=== PATIENT | female | born 1945 | race Caucasian/White ===

== ENCOUNTER 2017-06-01 20:20 | Emergency (ER) | payer OTHER ==
[2017-06-01 20:46] VITALS: BP 117/73; PULSE 88; TEMP 98.1; BMI 26.6
--- NOTE | 2017-06-01 21:39 | PDOC ---
History of Present Illness - General Chief Complaint: Vomiting/Diarrhea Stated Complaint: VOMITING & DIARRHEA Time Seen by Provider: 06/01/17 20:27 - History of Present Illness Initial Comments: This 72 y.o woman(Sami speaking only), hx of HTN,DM[Type2], HLD, Dementia is brought into the ER by her son and daughter with a one day history of loose, watery stools and one episode of vomiting just prior to presentation. No blood in emesis in stool. No hx of fever/chills. The patient has not complained of abdominal pain/chest pain/ shortness of breath to her family. No known immediate sick contacts although young grandchildren who reportedly have "a virus" visited a few days ago.No recent travel. Past History - Past Medical History Allergies/Adverse Reactions: Allergies Allergy/AdvReac Type Severity Reaction Status Date / Time No Known Allergies Allergy Verified 06/01/17 20:24 Home Medications: Ambulatory Orders Amlodipine Besylate [Norvasc -] 5 mg PO DAILY 06/01/17 Aspirin Coated [Ecotrin -] 81 mg PO DAILY 06/01/17 Duloxetine HCl [Cymbalta] 30 mg PO DAILY 06/01/17 Linagliptin [Tradjenta] 5 mg PO DAILY 06/01/17 Lisinopril 20 mg PO DAILY 06/01/17 Metformin HCl [Glucophage] 500 mg PO DAILY 06/01/17 Metoprolol Succinate [Toprol Xl] 100 mg PO DAILY 06/01/17 Potassium Chloride [K-Tab ER] 20 meq PO DAILY 06/01/17 Simvastatin 20 mg PO DAILY 06/01/17 Ondansetron [Zofran Odt -] 4 mg SL BID PRN #8 od.tablet 06/02/17 COPD: No Dementia: Yes Diabetes: Yes (TYPE II) HTN: Yes Hypercholesterolemia: Yes Psychiatric Problems: Yes (DEPRESSION) - Suicide/Smoking/Psychosocial Hx Smoking History: Never smoked Hx Alcohol Use: No Drug/Substance Use Hx: No Substance Use Type: None *Physical Exam - Vital Signs Last Vital Signs Temp Pulse Resp BP Pulse Ox 98.1 F 88 18 117/73 95 06/01/17 20:22 06/01/17 20:22 06/01/17 20:22 06/01/17 20:22 06/01/17 20:22 ED Treatment Course - LABORATORY CBC & Chemistry Diagram: 06/01/17 21:49 06/01/17 21:49 Progress Note - Progress Note Progress Note: The patient received 2 IV boluses of 500 ml of NS. Laboratory evaluation is essentially normal except for mild pre-renal azotemia( Bun23/Cre1.3) After IV fluids, pt felt significantly better and denied nausea. She had 2 more loose stools and received 4mg Imodium PO She tolerated approximately 8 oz water PO *DC/Admit/Observation/Transfer Diagnosis at time of Disposition: Acute gastroenteritis - Discharge Dispostion Disposition: HOME Condition at time of disposition: Stable - Prescriptions Prescriptions: Ondansetron [Zofran Odt -] 4 mg SL BID PRN #8 od.tablet PRN Reason: Nausea - Referrals Referrals: Natalie Cassidy [Primary Care Provider] - 1 week - Patient Instructions Printed Discharge Instructions: Viral Gastroenteritis Additional Instructions: clear liquids, advance diet as tolerated zofranODT 4mg up to twice a day as needed for nausea Imodium 2mg after each loose stool return to ER if vomiting persists or pain/fever develops followup with Dr Cassidy within 1 week - Post Discharge Activity
[2017-06-01 22:01] LABS: EOS % 0.8 % (0-4.5); HEMATOCRIT 39.6 % (32.4-45.2); HEMOGLOBIN 13.1 GM/dl (10.7-15.3); LYMPH % 15.8 % (8-40); MCH 28.3 pg (25.7-33.7); MCHC 33.1 g/dl (32.0-36.0); MEAN CELL VOLUME 85.4 fl (80-96); MEAN PLT VOLUME 7.9 fl (7.5-11.1); MONO % 11.8 % (3.8-10.2); NEUT % 70.6 % (42.8-82.8); PLATELET COUNT 308 K/MM3 (134-434); RBC 4.63 M/mm3 (3.60-5.2); RDW 13.6 % (11.6-15.6); WHITE BLOOD COUNT 9.1 K/mm3 (4.0-10.8)
[2017-06-01 22:09] LABS: ALBUMIN 3.9 g/dl (3.5-5.0); ALK PHOS 36 U/L (32-92); ANION GAP 10 (8-16); BILIRUBIN,TOTAL 0.8 mg/dl (0.2-1.0); BLOOD UREA NITROGEN 28 mg/dl (7-18); CHLORIDE 104 mmol/L (98-107); CO2 22 mmol/L (22-28); CREATININE 1.3 mg/dl (0.6-1.3); GLUCOSE,RANDOM 177 mg/dl (74-106); POTASSIUM 3.8 mmol/L (3.5-5.1); SGOT/AST 23 U/L (10-42); SGPT/ALT 21 U/L (10-40); SODIUM 136 mmol/L (136-145); TOT PROT 7.8 g/dl (6.4-8.3)
[2017-06-01 22:26] LABS: LIPASE 106 U/L (73-393)
[2017-06-01] MEDS ORDERED: SODIUM CHLORIDE 500 ML IV STA (22:36)
[2017-06-02] MEDS ORDERED: SODIUM CHLORIDE 500 ML IV STA (00:26)
[2017-06-02] MEDS ORDERED: ONDANSETRON 4 MG/2 ML VIAL IVPUSH ONE (00:27)
[2017-06-02] MEDS ORDERED: LOPERAMIDE HCL 2 MG CAPSULE PO ONE (01:03)
[2017-06-02] MEDS ORDERED: LOPERAMIDE HCL 2 MG CAPSULE ONE (01:06)
== END 2017-06-02 01:29 | disposition home or self-care (01) ==
LOC: FER 20:20
PROC: 3E0337Z Introduction of Electrolytic and Water Balance Substance into Peripheral Vein, Percutaneous Approach (ICD-10-PCS; principal; 2017-06-01)
DX: K52.9 Noninfective gastroenteritis and colitis, unspecified (principal); F32.9 Major depressive disorder, single episode, unspecified; I10 Essential (primary) hypertension; E78.00 Pure hypercholesterolemia, unspecified; F03.90 Unspecified dementia, unspecified severity, without behavioral disturbance, psychotic disturbance, mood disturbance, and anxiety
CPT/HCPCS: 36415; 80053; 83690; 85025; 99281-25